=== PATIENT | female | born 1985 | race Caucasian/White ===

== ENCOUNTER 2020-03-09 12:57 | Outpatient (CLI) | payer SELFPAY ==
[~2020-03-09] VITALS: Ht 63 cm; Wt 80.4 kg
--- NOTE | 2020-03-09 13:00 | NUR ---
ARTURO AGRAWAL presented to unit via ambulatory from ED, accompanied by FOB, with c/o CRAMPING. ARTURO AGRAWAL weighed, gowned, voided, and to bed. EFHM and TOCO applied, VS taken. ARTURO AGRAWAL oriented to bed controls, call light, TV, heat, and A/C controls.
[2020-03-09 13:22] VITALS: BP 15/84
--- NOTE | 2020-03-09 13:35 | NUR ---
SVE PER THIS RN AND RAY RODRIGUEZ. 1 1/2 CM, THICK, BALLOTABLE.
[2020-03-09 13:47] VITALS: BP 135/84
[2020-03-09 13:51] LABS: BILIRUBIN,URINE NEGATIVE (NEGATIVE); CLARITY,URINE CLEAR; COLOR,URINE YELLOW; GLUCOSE, URINE (UA) NEGATIVE (NEGATIVE); KETONES,URINE NEGATIVE (NEGATIVE); LEUKOCYTE ESTERASE ,URINE NEGATIVE (NEGATIVE); NITRITE,URINE NEGATIVE (NEGATIVE); PH,URINE 6.5 (5-9); PROTEIN,URINE NEGATIVE (NEGATIVE)
[2020-03-09 13:59] LABS: BACTERIA,URINE FEW /HPF
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
[2020-03-09 14:04] LABS: AMPHETAMINE SCREEN, URINE NEGATIVE (NEGATIVE); BARBITURATE SCREEN URINE NEGATIVE (NEGATIVE); BENZODIAZEPINES SCREEN URINE NEGATIVE (NEGATIVE); CANNABINOID SCREEN, URINE NEGATIVE (NEGATIVE); COCAINE SCREEN URINE NEGATIVE (NEGATIVE); METHADONE STAT NEGATIVE (NEGATIVE); METHAMPHETAMINE SCREEN URINE S NEGATIVE (NEGATIVE); OPIATE SCREEN URINE NEGATIVE (NEGATIVE); OXYCODONE STAT NEGATIVE (NEGATIVE); PROPOXYPHENE STAT NEGATIVE (NEGATIVE); TRICYCLIC ANTIDEPRESSANTS SCRE NEGATIVE (NEGATIVE)
--- NOTE | 2020-03-09 14:13 | NUR ---
DR. DAVISON NOTIFIED OF PT'S ARRIVAL, HISTORY OF CARE, SVE, HEART RATE, CONTRACTION PATTERN, LABS. NEW ORDERS RECEIVED.
--- NOTE | 2020-03-09 14:30 | NUR ---
PT STATES MALICK LIVES IN [place], [place] AND THAT SHE LIVES IN [place], [place]. OTHER CHILDREN, DAVID AND DERECK, ARE WITH GRANDMA. HER OLDEST CHILD WAS ADOPTED AT .
--- NOTE | 2020-03-09 14:45 | NUR ---
MONITORS REMOVED. PT STATES "IT'S NOT THAT BAD THAT I HAVEN'T HAD CARE. I AM DOING EVERYTHING A DOCTOR WOULD DO". PT GIVEN DISCHARGE INSTRUCTIONS AND REMINDED THE IMPORTANCE OF CONTACTING A PHYSICIAN'S OFFICE FOR PLACE OF CARE. PT AMBULATED OFF THE UNIT WITHOUT SIGNS OF DISTRESS WITH FOB AT SIDE.
--- NOTE | 2020-03-11 09:12 | Physician Query-Final Dx ---
SHAWNEE GRACE 03/11/20 0912: Clinic Account Progress/Dx Physician Query: Please give diagnosis Please include # weeks gestation Date of Service Mar 09, 2020 at 12:57 KIRK DAVISON DO 03/11/20 0943: Clinic Account Progress/Dx DIAGNOSIS: Diagnosis Unknown gestational age, 32 weeks by LMP No care SHAWNEE GRACE Mar 11, 2020 09:12 KIRK DAVISON DO Mar 11, 2020 09:43
== END 2020-03-09 14:55 ==
LOC: LDRP 12:57 → WSo 12:57
PROVIDERS: ATTEND Obstetrics & Gynecology
DX: O26.893 Other specified pregnancy related conditions, third trimester (principal); R10.9 Unspecified abdominal pain; Z3A.32 32 weeks gestation of pregnancy
CPT/HCPCS: 36415; 80306; 81000; 84443; 86703; 86762; 86765; 86780; 87081; 87088; 87340